=== PATIENT | female | born 1990 | race African-American/Black ===

== ENCOUNTER 2016-09-02 22:47 | Emergency (ER) | payer SELFPAY ==
[~2016-09-02] VITALS: Ht 165.1 cm; Wt 50.0 kg
[~2016-09-02 22:47] MED LIST: FERRF325 PO; IBUP600 PO; PERI8.6T PO
[2016-09-02 22:50] VITALS: BP 112/62; PULSE 51; RESP 14; TEMP 98.2; O2SAT 99
[2016-09-03] MEDS ORDERED: BACT800T5 PO (01:44)
--- NOTE | 2016-09-03 01:44 | PD ---
HPI Chief Complaint: Skin Problem Time Seen by Provider: 01:40 Travel History International Travel<30 days: No Contact w/Intl Traveler<30days: No Traveled to known affect area: No History of Present Illness HPI 25-year-old [id number] black female presents to emergency Department with complaints of a infection to her left middle finger for the past week. It started off as a small area at the base of her nail. It has gotten worse and progressed up the finger. This becoming painful, swollen and red. She denies any fever chills. No drainage. PFSH Past Medical History Medical History: Denies Significant Hx Diminished Hearing: No Tetanus Vaccination: > 5 Years ?: Not LMP: 07/24/16 : 4 Para: 3 Past Surgical History Section: Yes (X 1) Social History Alcohol Use: No Tobacco Use: No Substance Use: No Allergies-Medications (Allergen,Severity, Reaction): Coded Allergies: No Known Allergies (Verified , 09/03/16) Reported Meds & Prescriptions Reported Meds & Active Scripts Active No Active Prescriptions or Reported Medications Review of Systems Except as stated in HPI: all other systems reviewed are Neg Physical Exam Narrative GENERAL: This is a well-nourished, well-developed patient, in no apparent distress. SKIN: No rashes, ecchymoses or lesions. Warm and dry. HEAD: Atraumatic. Normocephalic. EYES: PERRL, EOMI, no discharge or injection. No scleral icterus. EARS: Clear NOSE: Nasal turbinates appear normal. THROAT: Mucosa pink and moist. Airway patent. NECK: Trachea midline. supple, moves head freely. LUNGS: Clear to auscultation. CV: Regular in rhythm. ABDOMEN: Soft nontender. EXT: No clubbing cyanosis or edema. Examination of the left middle finger reveals a superficial fluctuant abscess. This appears to be a paronychia which is going superficially in the skin. It's tender, red and fluctuant. There is no bony involvement. She is able extend and flex her finger freely. Data Data Last Documented VS Vital Signs Date Time Temp Pulse Resp B/P Pulse Ox O2 Delivery O2 Flow Rate FiO2 09/02/16 22:50 98.2 51 14 112/62 99 Room Air Orders Tetanus/Diphtheria Tox Adult (Tetanus/Di (09/03/16 01:45) Lidocaine 1% Inj (50 Ml) (Xylocaine 1% I (09/03/16 01:45) Sulfamet-Trimeth Ds 800-160 Mg (Bactrim (09/03/16 01:45) MDM Medical Decision Making Medical Screen Exam Complete: Yes Emergency Medical Condition: Yes Medical Record Reviewed: Yes Differential Diagnosis MDM: High Differential diagnoses: Abscess, folliculitis, cellulitis, lymphangitis, abrasion, contact dermatitis, paronychia Narrative Course An incision and drainage of the paronychia has been performed. Patient's given Bactrim DS and a tetanus immunization Procedures Procedure Narrative Incision and drainage left middle finger paronychia: The fingers prepped and draped in usual sterile fashion using Betadine. 1% lidocaine digital block. After adequate anesthesia and 11 blade scalpel is used to unroof the abscess. Pus is expressed. The wound is cleansed with saline. Dressing applied. Patient tolerated procedure well. No complications. Diagnosis Primary Impression: Paronychia of left middle finger Patient Instructions: General Instructions Departure Forms: Tests/Procedures, Work Release Special Instructions: No work 2 days. Additional Instructions: Rest. Elevation. keep clean and dry. Soak in Epsom salts twice daily. Daily wound care with soap, water and Neosporin. Three Advil every 6 hours. Bactrim DS Follow-up with a primary care doctor in one week. Return to the ER for any problems. Med/Other Pt SpecificInfo: Prescription(s) given, Wound Care Scripts No Active Prescriptions or Reported Meds Disposition: 01 DISCHARGE HOME Condition: Stable Reynaldo Harris Sep 03, 2016 01:43
[2016-09-03] MEDS ORDERED: LIDOCAINE HCL 1% 50 ML VIAL INFIL ONE (01:45)
[2016-09-03] MEDS ORDERED: TETANUS/DIPHTHERIA TOXOID ADULT 0.5 ML VIAL IM ONE (01:45)
[2016-09-03] MEDS ORDERED: SULFAMETHOXAZOLE-TRIMETHOPRIM DS 800-160 MG TAB PO ONE (01:45)
== END 2016-09-03 02:27 | disposition home or self-care (01) ==
LOC: NEPB 22:47
DX: L03.012 Cellulitis of left finger (principal); Z23 Encounter for immunization
CPT/HCPCS: 10060; 90471; 90714

== ENCOUNTER 2016-12-29 10:37 | Emergency (ER) | payer SELFPAY ==
[~2016-12-29] VITALS: Ht 170.2 cm; Wt 44.0 kg
[~2016-12-29 10:37] MED LIST changes: +BACT800T5 PO; -FERRF325 PO; -IBUP600 PO; -PERI8.6T PO
[2016-12-29 10:39] VITALS: BP 106/65; PULSE 112; RESP 16; TEMP 99.6; O2SAT 98
[2016-12-29] MEDS ORDERED: SODIUM CHLOR 0.9% 1000 ML INJ 1,000 ML IV ONE (11:15)
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
[2016-12-29] MEDS ORDERED: KETOROLAC TROMETHAMINE 30 MG/ML (IVP) VIAL IV PUSH ONE (11:30)
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
[2016-12-29 12:03] LABS: AUTOMATED NEUTROPHIL # 7.8 TH/MM3 (1.8-7.7); BASOPHIL % 0.4 % (0.0-2.0); HEMATOCRIT 37.3 % (35.0-46.0); HEMO FLAGS DIFF FINAL; LYMPH % 17.7 % (9.0-44.0); LYMPHOCYTE # 1.9 TH/MM3 (1.0-4.8); MEAN CELL VOLUME 83.2 FL (80.0-100.0); MEAN CORPUSCULAR HEMOGLOBIN 26.2 PG (27.0-34.0); MEAN CORPUSCULAR HGB CONC 31.4 % (32.0-36.0); MONO % 8.3 % (0.0-8.0); NEUT % 73.6 % (16.0-70.0); PLATELET COUNT 149 TH/MM3 (150-450); RED BLOOD COUNT 4.48 MIL/MM3 (4.00-5.30); WHITE BLOOD COUNT 10.6 TH/MM3 (4.0-11.0)
[2016-12-29 12:19] LABS: BICARBONATE 28.3 MEQ/L (21.0-32.0); POTASSIUM 3.8 MEQ/L (3.5-5.1)
[2016-12-29 13:17] LABS: BACTERIA, URINE MANY /hpf; BLOOD, URINE SMALL (NEG); COMMENT (UR) CULTURE INDICATED; CULTURE IF INDICATED CULTURE INDICATED; GLUCOSE,URINE NEG (NEG); KETONE, URINE NEG (NEG); MUCUS URINE MOD /lpf (OCC); NITRITE,URINE POS (NEG); PH, URINE 6.5 (5.0-8.5); SQUAMOUS EPITHELIAL CELL URINE <1 /hpf (0-5); URINE COLOR YELLOW (YELLW/STRAW)
[2016-12-29] MEDS ORDERED: CEPH-460 PO (13:44)
[2016-12-29] MEDS ORDERED: LIDOCAINE HCL 1% 50 ML VIAL XX ONE (13:45)
[2016-12-29 14:57] VITALS: BP 112/64; PULSE 99; RESP 18; O2SAT 100
== END 2016-12-29 14:57 | disposition home or self-care (01) ==
LOC: NEPD 10:37
DX: S90.02XA Contusion of left ankle, initial encounter (principal); N39.0 Urinary tract infection, site not specified; R00.0 Tachycardia, unspecified; Z79.899 Other long term (current) drug therapy; W22.8XXA Striking against or struck by other objects, initial encounter
CPT/HCPCS: 73610; 80048; 81001; 85025; 87077; 87086; 87186; 96361; 96372; 96374; 99284; J0696; J1885; J7030

== ENCOUNTER 2017-04-25 12:41 | Emergency (ER) | payer SELFPAY ==
[~2017-04-25] VITALS: Ht 167.6 cm; Wt 47.0 kg
[~2017-04-25 12:41] MED LIST changes: -BACT800T5 PO; +CEPH-460 PO
[2017-04-25 12:43] VITALS: BP 94/44; PULSE 63; RESP 12; TEMP 98.4; O2SAT 100
--- NOTE | 2017-04-25 14:10 | PD ---
HPI Chief Complaint: Related Problem Time Seen by Provider: 13:51 Travel History International Travel<30 days: No Contact w/Intl Traveler<30days: No Traveled to known affect area: No History of Present Illness HPI The patient is a 26-year-old female who is Ab1 who states she is . The patient states she'll positive test several months ago, cannot recall her last menstrual cycle secondary to an irregular cycle. The patient has had one previous section with . The patient states she has felt movement, has not had any care. She does note intermittent vaginal spotting described as dark and red, without any dysuria, frequency, or urgency. She does states she is Rh- and has needed RhoGAM in the past. Symptoms are mild, related to , and no current alleviating factors. PFSH Past Medical History Diminished Hearing: No ?: : 4 Para: 3 Past Surgical History Section: Yes (X 1) Gynecologic Surgery: Yes (CSECTION) Social History Alcohol Use: No Tobacco Use: No Substance Use: No Allergies-Medications (Allergen,Severity, Reaction): Coded Allergies: No Known Allergies (Verified , 12/29/16) Reported Meds & Prescriptions Reported Meds & Active Scripts Active Keflex (Cephalexin) 500 Mg Cap 500 Mg PO Q12H 10 Days Review of Systems Except as stated in HPI: all other systems reviewed are Neg General / Constitutional: No: Fever Gastrointestinal: No: Nausea, Vomiting, Abdominal Pain Genitourinary: Positive: Vaginal Bleeding (spotting), Other (as noted in the history of present illness), No: Dysuria Physical Exam Narrative GENERAL: Awake, alert, pleasant 26-year-old female who appears her stated age and is in no acute respiratory distress. SKIN: Focused skin assessment warm/dry. HEAD: Atraumatic. Normocephalic. EYES: Pupils equal and round. No scleral icterus. No injection or drainage. ENT: No nasal bleeding or discharge. Mucous membranes pink and moist. NECK: Trachea midline. No JVD. CARDIOVASCULAR: Regular rate and rhythm. No murmur appreciated. RESPIRATORY: No accessory muscle use. Clear to auscultation. Breath sounds equal bilaterally. GASTROINTESTINAL: Abdomen soft, gravid. MUSCULOSKELETAL: No obvious deformities. No clubbing. No cyanosis. No edema. NEUROLOGICAL: Awake and alert. No obvious cranial nerve deficits. Motor grossly within normal limits. Normal speech. PSYCHIATRIC: Appropriate mood and affect; insight and judgment normal. Data Data Last Documented VS Vital Signs Date Time Temp Pulse Resp B/P (MAP) Pulse Ox O2 Delivery O2 Flow Rate FiO2 04/25/17 12:43 98.4 63 12 94/44 (61) 100 [facility] Medical Decision Making Medical Screen Exam Complete: Yes Emergency Medical Condition: Yes Medical Record Reviewed: Yes Interpretation(s) Vital Signs Date Time Temp Pulse Resp B/P (MAP) Pulse Ox O2 Delivery O2 Flow Rate FiO2 04/25/17 12:43 98.4 63 12 94/44 (61) 100 Differential Diagnosis differential diagnosis includes , threatened AB, ectopic , cervicitis, PID, UTI, normal . Narrative Course The patient was obviously gravid, bedside ultrasound was performed which reveals positive movement and cardiac activity. The patient states she can feel movement, consistent with quickening, most likely the patient is at least 1618 weeks . Therefore, patient will be sent to OB ED. Patient states she was followed at the 201 daily for her last , 2 years ago. Procedures Procedure Narrative A bedside ultrasound was performed using a curvilinear probe. Ultrasound reveals a IUP with movement and cardiac activity. Patient tolerated the ultrasound without difficulty. There was no obvious complications. Diagnosis Primary Impression: Qualified Codes: Z34.90 - Encounter for supervision of normal , unspecified, unspecified trimester Additional Instructions: Patient will go to OB ED. Condition: Stable Rios Boyd MD Apr 25, 2017 14:10
[2017-04-25 16:00] LABS: BASOPHIL % 0.4 % (0.0-2.0); EOSINOPHIL # 0.1 TH/MM3 (0-0.4); EOSINOPHIL % 1.1 % (0.0-4.0); HEMATOCRIT 32.8 % (35.0-46.0); HEMO FLAGS DIFF FINAL; LYMPH % 26.2 % (9.0-44.0); LYMPHOCYTE # 2.4 TH/MM3 (1.0-4.8); MEAN CELL VOLUME 84.1 FL (80.0-100.0); MEAN CORPUSCULAR HEMOGLOBIN 27.7 PG (27.0-34.0); MONO % 5.9 % (0.0-8.0); NEUT % 66.4 % (16.0-70.0); PLATELET COUNT 177 TH/MM3 (150-450); RED CELL DISTRIBUTION WIDTH 14.9 % (11.6-17.2)
--- NOTE | 2017-04-25 17:03 | PD ---
HPI Chief Complaint Spotting Date Seen: Apr 25, 2017 Time Seen: 15:00 Travel History International Travel<30 Days: No Contact w/Intl Traveler<30Days: No Known Affected Area: No History of Present Illness HPI 26-year-old 6 para 4 AB 1 who has had no care. She comes today for complaint of spotting 2 days ago. She denies any leakage of fluid, vaginal discharge or ongoing bleeding. She is 14 weeks by bedside ultrasound at this time giving an EDC of October 24. Weeks Gestation: 14 History Past Medical History Narrative Medical No chronic diseases Obstetric History Obstetric History Elective 1 One vaginal delivery 1 for previa 2 additional successful VBACs Patient reports she is Rh- Past Surgical History Narrative Surgical Family History Family History: Negative Social History Alcohol Use: No Tobacco Use: No Substance Abuse: No Allergies-Medications (Allergen,Severity, Reaction): Coded Allergies: No Known Allergies (Verified , 12/29/16) Home Meds Active Scripts Cephalexin (Keflex) 500 Mg Cap, 500 MG PO Q12H for Infection for 10 Days, CAP 0 Refills Prov:Kristen Lin ALLYN 12/29/16 Review of Systems Except as stated in HPI: all other systems reviewed are Neg Physical Exam Vital Signs Date Time Temp Pulse Resp B/P (MAP) Pulse Ox O2 Delivery O2 Flow Rate FiO2 04/25/17 12:43 98.4 63 12 94/44 (61) 100 Narrative GENERAL: Well-nourished, well-developed patient. SKIN: Warm and dry. HEAD: Normocephalic and atraumatic. EYES: No scleral icterus. No injection or drainage. ENT: No nasal drainage noted. Mucous membranes pink. Airway patent. NECK: Supple, trachea midline. No JVD. CARDIOVASCULAR: Regular rate and rhythm without murmurs, gallops, or rubs. RESPIRATORY: Breath sounds equal bilaterally. No accessory muscle use. ABDOMEN/GI: Abdomen soft, non-tender, bowel sounds present, no rebound, no guarding Gravid to [-] weeks size Fundal Height: [Palpable in the midline above the pubis-] GENITOURINARY: External Genitalia: intact and normal in appearance BUS glands: [-Negative] Cervix: [-] Dilatation: [Closed-] Effacement: [-Long] Station: [-] Presentation: [-] Membranes: [intact or ruptured] Uterine Contractions: [-] FHT's: Category: [-] Baseline: [-140] Reactive: [-] Variability: [-] Decels: [-] EXTREMITIES: No cyanosis or edema. BACK: Nontender without obvious deformity. No CVA tenderness. NEUROLOGICAL: Awake and alert. Motor and sensory grossly within normal limits. Five out of 5 muscle strength in all muscle groups. Normal speech. Ultrasound reveals a viable meléndez with crown-rump length consistent with 14 weeks' gestation, posterior placenta Data Data Orders Orders Rubella Immune Status (04/25/17 14:57) Hepatitis Profile (04/25/17 14:57) Rapid Plasma Regin (Rpr) W Ttr (04/25/17 14:57) Type And Screen (04/25/17 14:57) Complete Blood Count With Diff (04/25/17 14:57) Special Serology (04/25/17 14:57) Rhogam Only (04/25/17 15:05) Labs Laboratory Tests Test 04/25/17 15:15 White Blood Count 9.0 Red Blood Count 3.90 Hemoglobin 10.8 Hematocrit 32.8 Mean Corpuscular Volume 84.1 Mean Corpuscular Hemoglobin 27.7 Mean Corpuscular Hemoglobin Concent 33.0 Red Cell Distribution Width 14.9 Platelet Count 177 Mean Platelet Volume 9.8 Neutrophils (%) (Auto) 66.4 Lymphocytes (%) (Auto) 26.2 Monocytes (%) (Auto) 5.9 Eosinophils (%) (Auto) 1.1 Basophils (%) (Auto) 0.4 Neutrophils # (Auto) 6.0 Lymphocytes # (Auto) 2.4 Monocytes # (Auto) 0.5 Eosinophils # (Auto) 0.1 Basophils # (Auto) 0.0 CBC Comment DIFF FINAL Differential Comment MDM Medical Record Reviewed: Yes Narrative Course / MDM Assessment: 14 week intrauterine , no care, spotting and an Rh - mother Plan: New OB labs were drawn in addition to type and screen for RhoGAM workup. Rogam ordered. Diagnosis Diagnosis: Primary Impression: Qualified Codes: Z34.90 - Encounter for supervision of normal , unspecified, unspecified trimester Additional Impressions: 14 weeks gestation of Spotting affecting in second trimester Disposition: 01 DISCHARGE HOME Condition: Good Additional Instructions: Patient will go to OB ED. Alexander Crenshaw MD Apr 25, 2017 17:03
[2017-04-25 17:08] LABS: RUBELLA IGG ANTIBODY 9.5 IU/mL (10.0-500.0); RUBELLA STATUS INDETERMINATE (IMMUNE)
[2017-04-25 17:17] VITALS: BP 104/57; PULSE 64; RESP 18; TEMP 98.3
[2017-04-25 17:24] VITALS: BP 95/68; RESP 18
== END 2017-04-25 17:36 | disposition home or self-care (01) ==
LOC: NEPC 12:41 → HOBED 17:36
DX: O36.0920 Maternal care for other rhesus isoimmunization, second trimester, not applicable or unspecified (principal); Z3A.14 14 weeks gestation of pregnancy
CPT/HCPCS: 80074; 85025; 86592; 86703; 86762; 86850; 86900; 86901; 90384; 96372; J2790

== ENCOUNTER 2017-10-05 15:49 | Inpatient (IN) | payer MEDICAID ==
[2017-10-05] VITALS (32 sets, daily range): BP systolic 79–115; BP diastolic 28–84; PULSE 68–124; RESP 16–20; TEMP 98.7–98.8; O2SAT 97–100
[~2017-10-05] VITALS: Ht 157.5 cm; Wt 61.0 kg
[2017-10-05] MEDS ORDERED: DIPHTH/TETANUS/ACEL PERTUSSIS (BOOSTER) 0.5 ML VIAL/PFS IM ONE (16:00)
[2017-10-05] MEDS ORDERED: MEASLES, MUMPS, RUBELLA VACCINE 0.5 ML VIAL SQ ONE (16:00)
[2017-10-05] MEDS ORDERED: LACTATED RINGER'S 1000 ML INJ 1,000 ML IV SCH (16:25)
[2017-10-05] MEDS ORDERED: LIDOCAINE HCL 1% 50 ML VIAL I-DERMAL PRN (16:30)
[2017-10-05] MEDS: LACTATED RINGER'S 1000 ML INJ 1,000 ML IV PRN ×2 (16:30→17:15)
[2017-10-05] MEDS ORDERED: LIDOCAINE HCL 1% 20 ML VIAL INFIL PRN (16:30)
[2017-10-05] MEDS ORDERED: MINERAL OIL 10 ML VIAL TOPICAL PRN (16:30)
[2017-10-05] MEDS ORDERED: SODIUM CHLORID 0.9% 500 ML INJ 500 ML IV PRN (16:30)
[2017-10-05] MEDS ORDERED: CITRIC ACID-SODIUM CITRATE LIQ 30 ML UDC PO SCH (16:30)
[2017-10-05] MEDS ORDERED: OXYTOCIN 30 UNITS-500ML PREMIX 500 ML IV ONE (16:30)
--- NOTE | 2017-10-05 16:37 | PD ---
HPI Travel History International Travel<30 Days: No Contact w/Intl Traveler<30Days: No Known Affected Area: No History of Present Illness HPI 26-year-old female at 37/2 weeks with no care presents today to the OB ED with contractions. Reports that they started around 1-2 hours ago when she woke up. She said they were occurring every 3 minutes. She also states that she lost her mucous plug. Shortly after, she also had leakage of fluid. She complains of spotting for the last couple days. She denies vaginal discharge or ongoing bleeding. Patient was seen in OB ED on 04/25/17, patient had a bedside ultrasound at that time with the FOUZIA of 10/24/17. GBS unknown. Mom reports that baby will be placed for adoption. History Past Medical History Medical History: Denies Significant Hx Obstetric History Obstetric History Elective 1 One vaginal delivery 1 for previa 2 additional successful VBACs Patient reports she is Rh- Family History Narrative Family History Social History Alcohol Use: No Tobacco Use: No Substance Abuse: No Allergies-Medications (Allergen,Severity, Reaction): Coded Allergies: No Known Allergies (Verified Allergy, Unknown, 10/05/17) Home Meds Active Scripts Cephalexin (Keflex) 500 Mg Cap, 500 MG PO Q12H for Infection for 10 Days, CAP 0 Refills Prov:LinKristen 12/29/16 Review of Systems Except as stated in HPI: all other systems reviewed are Neg Physical Exam Narrative GENERAL: Well-nourished, well-developed patient. SKIN: Warm and dry. HEAD: Normocephalic and atraumatic. EYES: No scleral icterus. No injection or drainage. ENT: No nasal drainage noted. Mucous membranes pink. Airway patent. NECK: Supple, trachea midline. No JVD. CARDIOVASCULAR: Regular rate and rhythm without murmurs, gallops, or rubs. RESPIRATORY: Breath sounds equal bilaterally. No accessory muscle use. BREASTS: Bilateral exam showed no masses , no retractions, no nipple discharge. ABDOMEN/GI: Abdomen soft, non-tender, bowel sounds present, no rebound, no guarding Fundal Height: 36-37cm GENITOURINARY: Cervix: mid Dilatation: 6 Effacement: 80 Station: -1 Presentation: vertex Membranes: bulging Uterine Contractions: every 4-5min FHT's: Category: 1 Baseline: 130 Reactive: yes Variability: moderate Decels: no EXTREMITIES: No cyanosis or edema. BACK: Nontender without obvious deformity. NEUROLOGICAL: Awake and alert. Motor and sensory grossly within normal limits. Five out of 5 muscle strength in all muscle groups. Normal speech. Data Data Orders Orders Ob (2e) Additional Admit Info (10/05/17 16:25) MDM Plan 26-year-old female at 37/2 weeks with no care presents today to the OB ED in labor. Admit to L & D. -Intrauterine , category 1, reassuring -Mom reports baby will be placed for adoption -1 previous , 2 previous -GBS unknown -Rh negative per chart review, Rhogam will be administered -Rubella nonimmune, will receive MMR -Admit to L & D for expectant management snehaw Dr. Gaona and Mony Recinos MD R1 Oct 05, 2017 16:37
--- NOTE | 2017-10-05 16:44 | HHI.HP ---
History & Physical H&P OB ED Note (Detail) Patient Name: Juvenal Coronado Unit Number: [id number] Date of : 1990 Patient Status: Admitted Inpatient Attending Doctor: Zacarias Gaona Jr., MD HPI HPI Travel History International Travel<30 Days: No Contact w/Intl Traveler<30Days: No Known Affected Area: No History of Present Illness HPI 26-year-old female at 37/2 weeks with no care presents today to the OB ED with contractions. Reports that they started around 1-2 hours ago when she woke up. She said they were occurring every 3 minutes. She also states that she lost her mucous plug. Shortly after, she also had leakage of fluid. She complains of spotting for the last couple days. She denies vaginal discharge or ongoing bleeding. Patient was seen in OB ED on 04/25/17, patient had a bedside ultrasound at that time with the FOU[facility] of 10/24/17. GBS unknown History (Limited) History Past Medical History Medical History: Denies Significant Hx Obstetric History Obstetric History Elective 1 One vaginal delivery 1 for previa 2 additional successful VBACs Patient reports she is Rh- Family History Narrative Family History Social History Alcohol Use: No Tobacco Use: No Substance Abuse: No Allergies-Medications Allergies-Medications (Allergen,Severity, Reaction): Coded Allergies: No Known Allergies (Verified , 12/29/16) Home Meds Active Scripts Cephalexin (Keflex) 500 Mg Cap, 500 MG PO Q12H for Infection for 10 Days, CAP 0 Refills Prov:Kristen Lin 12/29/16 ROS Review of Systems Except as stated in HPI: all other systems reviewed are Neg Physical Exam Physical Exam Narrative GENERAL: Well-nourished, well-developed patient. SKIN: Warm and dry. HEAD: Normocephalic and atraumatic. EYES: No scleral icterus. No injection or drainage. ENT: No nasal drainage noted. Mucous membranes pink. Airway patent. NECK: Supple, trachea midline. No JVD. CARDIOVASCULAR: Regular rate and rhythm without murmurs, gallops, or rubs. RESPIRATORY: Breath sounds equal bilaterally. No accessory muscle use. BREASTS: Bilateral exam showed no masses , no retractions, no nipple discharge. ABDOMEN/GI: Abdomen soft, non-tender, bowel sounds present, no rebound, no guarding Fundal Height: 36-37cm GENITOURINARY: Cervix: mid Dilatation: 6 Effacement: 80 Station: -1 Presentation: vertex Membranes: bulging Uterine Contractions: every 4-5min FHT's: Category: 1 Baseline: 130 Reactive: yes Variability: moderate Decels: no EXTREMITIES: No cyanosis or edema. BACK: Nontender without obvious deformity. NEUROLOGICAL: Awake and alert. Motor and sensory grossly within normal limits. Five out of 5 muscle strength in all muscle groups. Normal speech. Data Data Data Orders Orders Ob (2e) Additional Admit Info (10/05/17 16:25) MDM MDM Plan 26-year-old female at 37/2 weeks with no care presents today to the OB ED in labor. Admit to L & D. -Intrauterine , category 1, reassuring -Mom reports baby will be placed for adoption -1 previous , 2 previous -GBS unknown -Rh negative per chart review, Rhogam will be administered -Rubella nonimmune, will receive MMR -Admit to L & D for expectant management sdw Dr. Gaona and Mony Recinos MD R1 Oct 05, 2017 16:37 Mony Laws MD R1 Oct 05, 2017 16:44
[2017-10-05] MEDS ORDERED: SODIUM CHLOR 0.9% 1000 ML INJ 1,000 ML IV PRN (16:45)
[2017-10-05] MEDS ORDERED: PREN1PAK9 (17:07)
[2017-10-05 17:23] LABS: AUTOMATED NEUTROPHIL # 3.9 TH/MM3 (1.8-7.7); BASOPHIL % 0.5 % (0.0-2.0); HEMATOCRIT 25.3 % (35.0-46.0); HEMOGLOBIN 8.4 GM/DL (11.6-15.3); LYMPH % 31.1 % (9.0-44.0); LYMPHOCYTE # 1.9 TH/MM3 (1.0-4.8); MEAN CELL VOLUME 76.4 FL (80.0-100.0); MEAN CORPUSCULAR HEMOGLOBIN 25.2 PG (27.0-34.0); MEAN PLATELET VOLUME 9.2 FL (7.0-11.0); MONO % 5.5 % (0.0-8.0); MONOCYTE # 0.3 TH/MM3 (0-0.9); NEUT % 62.9 % (16.0-70.0); PLATELET COUNT 166 TH/MM3 (150-450); RED BLOOD COUNT 3.31 MIL/MM3 (4.00-5.30); RED CELL DISTRIBUTION WIDTH 14.7 % (11.6-17.2); WHITE BLOOD COUNT 6.2 TH/MM3 (4.0-11.0)
[2017-10-05 17:24] LABS: BILIRUBIN, URINE NEG (NEG); BLOOD, URINE TRACE (NEG); GLUCOSE,URINE NEG (NEG); KETONE, URINE NEG (NEG); MUCUS URINE FEW /lpf (OCC); NITRITE,URINE NEG (NEG); SQUAMOUS EPITHELIAL CELL URINE 1 /hpf (0-5); URINE COLOR YELLOW (YELLW/STRAW); URINE LEUKOCYTE ESTERASE SMALL (NEG)
[2017-10-05] MEDS ORDERED: fentaNYL 2MCG-BUPIV 0.125% INJ 100 ML ONE (17:25)
[2017-10-05] MEDS ORDERED: ePHEDrine/NS 25 MG/5 ML SYRINGE ONE (17:59)
[2017-10-05] MEDS: ePHEDrine/NS 25 MG/5 ML SYRINGE IV PUSH PRN ×5 (18:00→18:36)
[2017-10-05] MEDS ORDERED: fentaNYL 2MCG-BUPIV 0.125% 100 ML EPIDURAL PRN (18:15)
[2017-10-05] MEDS ORDERED: DO NOT ADMINISTER ANTICOAGULANTS PRN (18:15)
[2017-10-05] MEDS ORDERED: NO SYSTEM NARCOTICS PRN (18:15)
--- NOTE | 2017-10-05 18:24 | PD.LABORPN ---
Subjective Subjective Patient doing well, asleep. Epidural placed. AROM of bulging bag performed at bedside by Dr. Laws. Supervised by Dr. Gaona and Dr. Bhatt. Objective Objective Pelvic Exam: Cervix: mid Dilatation: 8-cm Effacement: 90% Station: -1 Presentation: vertex Membranes: ruptured Uterine Contractions: every 4-6min FHT's: Category: 1 Baseline: 120 Reactive: yes Variability: moderate Decels: none Assessment/Plan Assessment and Plan 26-year-old female at 37/2 weeks with no care in labor. -Intrauterine , category 1, reassuring -Mom reports baby will be placed for adoption -s/p AROM for bulging bag, clear fluids -1 previous , 2 previous -GBS unknown -Rh negative per chart review, Rhogam will be administered -Rubella nonimmune, will receive MMR -Continue expectant management sdw Dr. Gaona and Dr. Nova Laws,Mony Jin MD R1 Oct 05, 2017 18:24
[2017-10-05] MEDS ORDERED: PHENYLEPH/NS 1000 MCG/10 ML SYR ONE (18:48)
[2017-10-05] MEDS: PHENYLEPH/NS 1000 MCG/10 ML SYR IV PUSH PRN ×2 (18:50→19:07)
--- NOTE | 2017-10-05 19:55 | PD.LABORPN ---
Subjective Subjective Patient doing well. Post epidural and post AROM No complaints per patient Objective Vital Signs Vital Signs Date Time Temp Pulse Resp B/P (MAP) Pulse Ox O2 Delivery O2 Flow Rate FiO2 10/05/17 19:35 100 10/05/17 19:35 84 10/05/17 19:30 99/71 (80) 10/05/17 19:25 100 10/05/17 19:25 92 10/05/17 19:15 94/57 (69) 10/05/17 19:12 80 97/62 (74) Objective Pelvic Exam: Cervix: mid Dilatation: 7 Effacement: 90% Station: -1 Presentation: vertex Membranes: ruptured Uterine Contractions: every 9-10min FHT's: Category: 1 Baseline: 120 Reactive: yes Variability: moderate Decels: none Assessment/Plan Assessment and Plan 26-year-old female at 37/2 weeks with no care in labor. -Intrauterine , category 1, reassuring -Mom reports baby will be placed for adoption -s/p AROM for bulging bag, clear fluids -s/p epidural anesthesia -Poor contractions, will start Pitocin 2-2-3 -1 previous , 2 previous -GBS unknown -Rh negative per chart review, Rhogam will be administered -Rubella nonimmune, will receive MMR -Continue expectant management sdw Dr. Gaona and Mony Hicks MD R1 Oct 05, 2017 19:55
[2017-10-05] MEDS ORDERED: OXYTOCIN 30 UNITS-500ML PREMIX 500 ML IV PRN (20:00)
[2017-10-05] MEDS ORDERED: IBUPROFEN 800 MG TAB PO PRN (23:00)
[2017-10-05] MEDS ORDERED: DOCUSATE SODIUM 50 MG/SENNA 8.6 MG TAB PO PRN (23:00)
[2017-10-05] MEDS ORDERED: OXYTOCIN 30 UNITS-500ML PREMIX 500 ML IV SCH (23:00)
[2017-10-05] MEDS ORDERED: ZOLPIDEM TARTRATE 5 MG TAB PO PRN (23:00)
[2017-10-05] MEDS ORDERED: BENZOCAINE 20% TOPICAL SPRAY 60 ML CAN TOPICAL PRN (23:00)
[2017-10-05] MEDS ORDERED: ACETAMINOPHEN 325 MG TAB PO PRN (23:00)
[2017-10-05] MEDS ORDERED: WITCH HAZEL 50%/GLYCERIN 12.5% 40 PAD JAR TOPICAL PRN (23:00)
[2017-10-05] MEDS ORDERED: ALUMINUM/MAGNESIUM/SIMETH 30 ML CUP PO PRN (23:00)
[2017-10-05] MEDS ORDERED: oxyCODONE/ACETAMINOPHEN 5 MG/325 MG TAB PO PRN ×2 (23:00)
[2017-10-05] MEDS ORDERED: SODIUM CHLORIDE 0.9% FLUSH 10 ML FLUSH IV FLUSH PRN (23:00)
[2017-10-05] MEDS ORDERED: ONDANSETRON ODT 4 MG TAB PO PRN (23:00)
--- NOTE | 2017-10-05 23:01 | PD.OB.DELI ---
Weeks gestation: 37 Pt started active labor?: Yes Anesthesia: Epidural Episiotomy: None Vaginal Delivery: Normal Presentation: Occiput anterior Nuchal Cord: None Delayed cord clamping (45 sec): Yes Infant: Male, Single Delivery date: Oct 05, 2017 Delivery time: 22:48 One Minute : 9 Five Minute : 9 Weight: 2860g Placenta: Spontaneous delivery, Intact Laceration: Vaginal laceration, 1 deg Estimated blood loss: 150 Tara Kaur MD R1 Oct 05, 2017 23:01
[2017-10-06] VITALS: BP 101/68; PULSE 70
[2017-10-06 00:15] VITALS: RESP 18
[2017-10-06] MEDS ORDERED: cefTRIAXone 250 MG VIAL IM ONE (06:45)
[2017-10-06] MEDS ORDERED: AZITHROMYCIN 250 MG TAB PO ONE (06:45)
[2017-10-06 07:30] VITALS: BP 112/75; PULSE 77; RESP 16; TEMP 98.3; O2SAT 98
--- NOTE | 2017-10-06 08:42 | HHI.OB ---
Subjective Post Day: 1 Remarks Patient seen and examined this AM. Afebrile, vitals stable. Patient states her pain is controlled. She has been ambulatory within room without issues. Reports minimal vaginal bleeding. She denies fevers, chest pain, dyspnea, lower extremity pain or swelling. She was informed of testing positive for gonorrhea and the need for antibiotics for this. She is giving her baby up for adoption. She otherwise has no complaints. Objective Vitals/I&O Vital Signs Date Time Temp Pulse Resp B/P (MAP) Pulse Ox O2 Delivery O2 Flow Rate FiO2 10/06/17 07:30 98.3 77 16 98 10/06/17 07:30 112/75 (87) 10/06/17 00:15 18 10/06/17 00:00 101/68 (79) 10/06/17 00:00 70 10/05/17 23:46 115/28 (57) 10/05/17 23:46 76 10/05/17 23:30 18 10/05/17 23:16 105/84 (91) 10/05/17 23:16 86 10/05/17 23:15 98.8 18 10/05/17 23:00 68 10/05/17 23:00 96/72 (80) 10/05/17 22:55 20 10/05/17 22:51 99/59 (72) 10/05/17 22:45 100/54 (69) 10/05/17 22:30 99/68 (78) 10/05/17 22:15 101/73 (82) 10/05/17 22:00 94/62 (73) 10/05/17 21:56 20 10/05/17 21:45 94/59 (71) 10/05/17 21:37 20 10/05/17 21:30 98.7 10/05/17 21:30 88 18 104/67 (79) 10/05/17 21:16 79/48 (58) 10/05/17 21:16 124 10/05/17 21:15 18 10/05/17 21:00 84 10/05/17 21:00 94/56 (69) 10/05/17 21:00 18 10/05/17 20:45 82 10/05/17 20:45 96/57 (70) 10/05/17 20:30 82 10/05/17 20:30 18 10/05/17 20:30 97/59 (72) 10/05/17 20:15 90 10/05/17 20:15 99/70 (80) 10/05/17 20:15 16 10/05/17 20:01 101 10/05/17 20:01 101/69 (80) 10/05/17 20:00 18 10/05/17 19:55 100 10/05/17 19:55 90 10/05/17 19:50 94 10/05/17 19:45 91/63 (72) 10/05/17 19:40 97 10/05/17 19:40 91 10/05/17 19:35 100 10/05/17 19:35 84 10/05/17 19:30 18 10/05/17 19:30 99/71 (80) 10/05/17 19:25 100 10/05/17 19:25 92 10/05/17 19:15 16 10/05/17 19:15 94/57 (69) 10/05/17 19:12 80 97/62 (74) Objective Remarks GENERAL: Well-nourished, well-developed patient. CARDIOVASCULAR: Regular rate and rhythm without murmurs, gallops, or rubs. RESPIRATORY: Breath sounds equal bilaterally. No accessory muscle use. ABDOMEN/GI: Abdomen soft, non-tender. Fundus: Firm, non-tender at umbilicus. GENITOURINARY: Light to moderate bleeding. EXTREMITIES: No cyanosis or edema, non-tender, without signs of DVT. Medications and IVs Current Medications Medications (Trade) Dose Ordered Sig/Marisa Route Start Time Stop Time Status Last Admin (NS Flush) 2 ml BID IV FLUSH 10/06/17 09:00 (NS Flush) 2 ml UNSCH PRN IV FLUSH 10/05/17 23:00 (Tylenol) 650 mg Q4H PRN PO 10/05/17 23:00 (Motrin) 800 mg Q8H PRN PO 10/05/17 23:00 (Percocet 5-325 Mg) 1 tab Q4H PRN PO 10/05/17 23:00 (Percocet 5-325 Mg) 2 tab Q4H PRN PO 10/05/17 23:00 (Americaine 20% Top Spr) 1 spray Q4H PRN TOPICAL 10/05/17 23:00 (Tucks Pads) 1 applic QID PRN TOPICAL 10/05/17 23:00 (Annalisa-Colace) 2 tab Q12H PRN PO 10/05/17 23:00 (Ambien) 5 mg HS PRN PO 10/05/17 23:00 (Mag-Al Plus Susp Liq) 15 ml Q8H PRN PO 10/05/17 23:00 (Zofran Odt) 4 mg Q6H PRN PO 10/05/17 23:00 Assessment/Plan Assessment and Plan 26 year old now PPD#1. 1. care - AFVSS - Continue Motrin prn pain - Encouraged ambulation, as tolerated - Advised pelvic rest x 6 weeks - Contraception: Discussed with patient this AM, desiring Nexplanon - Instructed patient follow up with her OB provider within six weeks after hospital discharge for continued care as well as contraception wdw OB Hospitalist Timmy Knapp MD R2 Oct 06, 2017 08:42
[2017-10-06] MEDS ORDERED: SODIUM CHLORIDE 0.9% FLUSH 10 ML FLUSH IV FLUSH SCH (09:00)
[2017-10-06] MEDS ORDERED: LIDOCAINE HCL 1% 10 ML VIAL INFIL ONE (09:00)
--- NOTE | 2017-10-06 09:27 | HHI.DCPOC ---
Discharge Care Plan Diagnosis: (1) care following vaginal delivery Report Symptoms to Your Doctor -Temperature above 100.5 degrees -Redness, of incision or excessive or foul smelling drainage -Unusual pain or calf pain -Increased vaginal bleeding -Painful or difficulty urinating -Feelings of extreme sadness or anxiety after 2 weeks Goals to Promote Your Health * To maintain your health at the optimal level, follow up with your primary OB provider within 6 weeks after hospital discharge. Directions to Meet Your Goals Take your medications as prescribed Follow your dietary instruction Follow activity as directed Ensure plenty of rest for recovery Drink fluids for hydration Keep your appointments as scheduled Take your immunizations and boosters as scheduled If your symptoms worsen call your PCP, if no PCP go to Urgent Care Center or Emergency Room Smoking is Dangerous to Your Health. Avoid second hand smoke Call the 24-hour crisis hotline for domestic abuse at Timmy Knapp MD R2 Oct 06, 2017 09:27
[2017-10-06] MEDS ORDERED: IBUP1TAB7 PO (09:30)
[2017-10-06] MEDS ORDERED: PERI PO (09:30)
== END 2017-10-06 17:00 | disposition home or self-care (01) | DRG 774 ==
LOC: HOBED 15:49 → H2EB 16:25 → H1EA 10-06 00:50
PROVIDERS: ADMIT Obstetrics & Gynecology; ATTEND Obstetrics & Gynecology
PROC: 10907ZC Drainage of Amniotic Fluid, Therapeutic from Products of Conception, Via Natural or Artificial Opening (ICD-10-PCS; principal; 2017-10-05)
PROC: 3E0R3BZ Introduction of Anesthetic Agent into Spinal Canal, Percutaneous Approach (ICD-10-PCS; 2017-10-05)
PROC: 00HU33Z Insertion of Infusion Device into Spinal Canal, Percutaneous Approach (ICD-10-PCS; 2017-10-05)
PROC: 10E0XZZ Delivery of Products of Conception, External Approach (ICD-10-PCS; 2017-10-06)
PROC: 0HQ9XZZ Repair Perineum Skin, External Approach (ICD-10-PCS; 2017-10-06)
PROC: 3E0334Z Introduction of Serum, Toxoid and Vaccine into Peripheral Vein, Percutaneous Approach (ICD-10-PCS; 2017-10-06)
DX: O34.219 Maternal care for unspecified type scar from previous cesarean delivery (principal); O98.213 Gonorrhea complicating pregnancy, third trimester; O36.0930 Maternal care for other rhesus isoimmunization, third trimester, not applicable or unspecified; O09.33 Supervision of pregnancy with insufficient antenatal care, third trimester; O70.0 First degree perineal laceration during delivery; Z3A.37 37 weeks gestation of pregnancy; Z37.0 Single live birth
CPT/HCPCS: 59025; 80307; 81001; 84112; 85025; 85461; 86850; 86900; 86901; 87086; 87491; 87591; 90384; G0481; J0696; J2370; J2590; J2790; J3010; J7120